=== PATIENT | male | born 1990 | race African-American/Black ===

== ENCOUNTER 2023-11-02 02:31 | Emergency (ER) | payer OTHER ==
[~2023-11-02] VITALS: Ht 182.9 cm; Wt 67.1 kg
[2023-11-02] MEDS ORDERED: HYDROCODONE/APAP 5/325MG TABLET ONE (02:51)
[2023-11-02] MEDS: HYDROCODONE/APAP 5/325MG TABLET PO ONE (02:57)
[2023-11-02 04:20] VITALS: BP 136/79; TEMP 98.6; O2SAT 100
== END 2023-11-02 04:21 | disposition home or self-care (01) ==
LOC: ER 02:33
DX: S00.12XA Contusion of left eyelid and periocular area, initial encounter (principal); S00.511A Abrasion of lip, initial encounter; S00.81XA Abrasion of other part of head, initial encounter; Z60.2 Problems related to living alone; Y04.8XXA Assault by other bodily force, initial encounter; Y93.89 Activity, other specified; Y92.89 Other specified places as the place of occurrence of the external cause; Y99.8 Other external cause status
CPT/HCPCS: 70450-TC; 70486-TC; 72125-TC